=== PATIENT | male | born 1960 | race Caucasian/White ===

== ENCOUNTER 2021-08-03 17:13 | Observation (INO) | payer OTHER, SELFPAY ==
[2021-08-03] VITALS (20 sets, daily range): BP systolic 87–112; BP diastolic 54–66; PULSE 71–83; RESP 13–20; TEMP 36.7–36.9; O2SAT 95–98; BMI 33.2; BMI 32.6
--- NOTE | 2021-08-03 17:19 | DI.RAD.S_ITS ---
PROCEDURE: XR CHEST 1V INDICATIONS: chest pain TECHNIQUE: One view of the chest was acquired. COMPARISON: None. FINDINGS: Surgical changes and devices: None. Lungs and pleura: There is an overall appearance of increased interstitial markings. Mediastinum: Mediastinal contours appear normal. Heart size is mildly enlarged Bones and chest wall: No suspicious bony lesions. Overlying soft tissues appear unremarkable. IMPRESSION: Mild appearance of increased interstitial markings which can be seen with pneumonia. Superimposed edema cannot be excluded. Dictated by: Farhana Huynh M.D. on 08/03/2021 at 18:28 Approved by: Farhana Huynh M.D. on 08/03/2021 at 18:29
[2021-08-03] MEDS: SODIUM CHLORIDE 0.9% 1,000 ML 1000 ML IV ×2 (17:40→19:54)
[2021-08-03 17:56] LABS: INR 1.1 (0.9-1.3); Prothrombin Time 12.2 SECONDS (10.1-12.7)
[2021-08-03 17:59] LABS: Alanine Aminotransferase 23 IU/L (<50); Albumin 4.3 g/dL (3.5-5.0); Albumin Globulin Ratio 1.5 (1.0-2.8); Alkaline Phosphatase 84 U/L (38-126); Aspartate Aminotransferase 37 IU/L (17-59); BUN Creatinine Ratio 21.1 (6-22); Bilirubin Total 1.3 mg/dL (0.2-1.3); Blood Urea Nitrogen 48 mg/dL (9-20); Calcium 9.2 mg/dL (8.4-10.2); Carbon Dioxide 26 mmol/L (22-32); Chloride 105 mmol/L (98-107); Creatine Kinase 195 U/L (55-170); Estimated Glomerular Filt Rate 29.2 mL/min (>60); Globulin 2.8 g/dL (1.7-4.1); Glucose 145 mg/dL (80-110); HEMOLYSIS < 15 (0-50); Lipase 140 U/L (23-300); Magnesium 1.8 mg/dL (1.6-2.3); PTT Partial Thromboplastin Tim 32 SECONDS (26.4-36.2); Potassium 4.4 mmol/L (3.4-5.1); Sodium 139 mmol/L (137-145); Total Protein 7.1 g/dL (6.3-8.2)
[2021-08-03 18:02] LABS: COVID19 -Nasal RAPID POSITIVE (Negative)
[2021-08-03 18:11] LABS: Troponin I 0.031 ng/mL (0.01-0.034)
--- NOTE | 2021-08-03 18:13 | PC.NURSE ---
Patient reports significant body aches, some SOB with exertion, nausea and diarrhea that began 07/23/21 but intensified in the last couple of days. He reports recently testing positive for COVID. also reports he was doubling up on his labetalol and taking half of his prescribed metformin. He reports this was due to a misunderstanding of changes in his prescriptions.
[2021-08-03 18:14] LABS: CKMB % Relative Index 0.6 % (1.5-5.0)
[2021-08-03 18:19] LABS: Bacteria Urine None Seen; Culture Indicated Urine Cult Not Indicated; RBC Urine 1-5/HPF (0-5/HPF); Squamous Epithelial Cell Urine 0-1 /HPF (0-5/HPF); WBC Urine 1-5/HPF (0-5/HPF)
--- NOTE | 2021-08-03 18:29 | ED_ITS ---
HPI - Weakness General Chief complaint: Weakness Stated complaint: low blood pressure and low pulse Time Seen by Provider: 08/03/21 17:28 Source: patient and family Mode of arrival: Ambulatory History of Present Illness HPI Narrative: 61M nonsmoker with extensive medical history including cardiac, hypertension and chronic kidney disease presents with his from the walk-in clinic for evaluation of feeling a bit weak and ?crummy?. They are visiting locally to attend a from [facility]. He had been diagnosed with COVID with primarily mild respiratory symptoms on July 23 and had been doing largely a bit better until the past few days. He had accidentally been taking a double dose of his labetalol for a few weeks and had been doing so until or Thursday. He took at least 1 day with no labetalol and resumed his p.m. dose last night. He was feeling a bit weak and under the weather over the course of the day with very nonspecific symptoms but decided to go to the walk-in clinic for evaluation. He has had no fever or chills. He denies runny nose or sore throat. He has had some minimal cough. He denies any chest pain, dizzine Related Data Allergies Allergy/AdvReac Type Severity Reaction Status Date / Time hydromorphone [From Dilaudid] AdvReac Verified 08/03/21 17:34 Review of Systems Review of Systems Narrative: GENERAL: See HP HEENT: Denies sinus pain, ear pain, sore throat, difficulty swallowing, dizziness. RESPIRATORY: Denies dyspnea, cough, wheezing, hemoptysis, sputum. CARDIOVASCULAR: Denies chest pain, palpitations, orthopnea, edema, GASTROINTESTINAL: Denies nausea, vomiting, abdominal pain, diarrhea, constipation, melena. : Denies dysuria, frequency, incontinence, hematuria, urinary retention. MUSCULOSKELETAL: denies weakness, joint pain, or bony pain SKIN: Denies rash, skin lesions, or other NEUROLOGIC: See HPI PSYCHIATRIC: No concerning psychosocial issues. 12 point review of systems is negative except for those stated above Patient History Social History Smoking Status: Never smoker Smoking Status: Never smoker Substance Use Type: does not use Exam Narrative Exam Narrative: GENERAL: [61 year old patient appears stated age. Well-developed patient, in mild distress. HEAD: Atraumatic. Normocephalic. EYES: Pupils equal round and reactive. Extraocular motions intact. No scleral icterus. No injection or drainage. ENT: Nose without bleeding, purulent drainage. Throat without erythema, tonsillar hypertrophy or exudate. Airway patent. NECK: Trachea midline. Non tender CARDIOVASCULAR: Regular rate and rhythm without murmurs, gallops, or rubs. RESPIRATORY: Clear to auscultation. Breath sounds equal bilaterally. No wheezes, rales, or rhonchi. GASTROINTESTINAL: Abdomen soft, non-tender, nondistended. EXTREMITIES: No edema or joint tenderness. BACK: Nontender without deformity or crepitance. No flank tenderness. NEURO: AOx3. SKIN: No rash or erythema of visible areas Initial Vital Signs Initial Vital Signs: Vital Signs Blood Pressure 109/66 08/03/21 17:19 Course Orders Ordered: ED Orders 08/03/21 17:19 XR chest 1V Stat EKG-12 Lead Stat 08/03/21 17:20 COVID19 -Nasal swab/Pre-Proc Stat 08/03/21 17:30 Complete Blood Count AUTO DIFF Stat Comprehensive Metabolic Panel Stat Lipase Stat Magnesium Stat Partial Thromboplastin Time Stat Prothrombin Time INR Stat Troponin & CK Cardiac Panel Stat 08/03/21 17:55 Creatinine Urine Random Stat Sodium Urine Random Stat Urine Microscopic Stat 08/03/21 20:39 BMP [Basic Metabolic Panel] Stat Acetaminophen (Acetaminophen 325 Mg Tablet) 650 mg PO Q6HR PRN PRN Reason: Fever/Mild Pain (1-3) Dextrose (Dextrose 50 % In Water 25 Gm/50 Ml Syringe) 25 gm IV PRN PRN PRN Reason: Hypoglycemia Enoxaparin Sodium (Enoxaparin 40 Mg/0.4 Ml Syringe) 40 mg SUBCUT DAILY EDMAR Sodium Chloride (Normal Saline 0.9%) 1,000 mls @ 125 mls/hr IV CONT EDMAR Stop: 09/03/21 06:59 Insulin Glargine (Insulin Glargine 100 Unit/Ml 3ml Pen) 5 unit SUBCUT 2100 EDMAR Insulin Human Lispro (Insulin Lispro 100 Unit/Ml 3ml Vial) 0 unit SUBCUT ACHS EDMAR; Protocol Naloxone HCl (Naloxone 0.4 Mg/Ml Vial) 0.2 mg IV Q2MIN PRN PRN Reason: Opiate Reversal Ondansetron HCl (Ondansetron 4 Mg/2 Ml Inj) 4 mg IV Q8HR PRN PRN Reason: Nausea And Vomiting Discontinued Medications Sodium Chloride (Normal Saline 0.9%) 1,000 mls @ 1,000 mls/hr IV BOLUS ONE Stop: 08/03/21 18:30 Last Infusion: 08/03/21 19:50 Dose: 0 mls/hr Documented by: Admin: 08/03/21 17:40 Dose: 1,000 mls/hr Documented by: NYLAW Sodium Chloride (Normal Saline 0.9%) 1,000 mls @ 1,000 mls/hr IV BOLUS ONE Stop: 08/03/21 20:42 Last Infusion: 08/03/21 21:44 Dose: 0 mls/hr Documented by: Admin: 08/03/21 19:54 Dose: 1,000 mls/hr Documented by: AYAH Vital Signs Vital signs: Vital Signs - 8 hr 08/03/21 17:19 08/03/21 17:20 08/03/21 17:30 Temperature Pulse Rate 80 83 Respiratory Rate Blood Pressure 109/66 Pulse Oximetry 98 97 08/03/21 17:34 08/03/21 18:00 08/03/21 18:07 Temperature 98.5 F Pulse Rate 78 81 81 Respiratory Rate 18 17 19 Blood Pressure 109/66 90/56 L Pulse Oximetry 96 95 97 08/03/21 18:08 08/03/21 18:30 08/03/21 18:35 Temperature Pulse Rate 81 78 78 Respiratory Rate 20 16 16 Blood Pressure 90/54 L 92/54 L Pulse Oximetry 96 96 97 08/03/21 19:00 08/03/21 19:30 08/03/21 20:00 Temperature Pulse Rate 76 76 74 Respiratory Rate 15 15 14 Blood Pressure 94/56 L 99/58 L 96/60 Pulse Oximetry 97 97 97 08/03/21 20:30 08/03/21 21:00 08/03/21 21:30 Temperature Pulse Rate 73 71 72 Respiratory Rate 15 13 15 Blood Pressure 95/58 L 96/56 L 101/58 L Pulse Oximetry 96 96 96 08/03/21 22:00 08/03/21 22:05 08/03/21 22:06 Temperature Pulse Rate 71 79 78 Respiratory Rate 17 17 20 Blood Pressure 104/62 87/58 L 90/56 L Pulse Oximetry 96 96 97 08/03/21 22:30 Temperature Pulse Rate 72 Respiratory Rate 15 Blood Pressure 97/58 L Pulse Oximetry 97 MDM - Weakness Lab Data Result diagrams: 08/03/21 17:30 08/03/21 20:39 Labs: Lab Results 08/03/21 08/03/21 08/03/21 Range/Units 17:20 17:30 17:30 WBC 3.0 L (4.5-11.0) X10^3/uL RBC 4.21 L (4.5-5.9) X10^6/uL Hgb 13.2 L (13.5-17.5) g/dL Hct 39.2 L (41-53) % MCV 93.1 (80-100) fL MCH 31.4 (26-34) PG MCHC 33.7 (30-36) % RDW 13.0 (11.6-14.8) % Plt Count 125 L (150-400) X10^3/uL Neut % (Auto) 50.0 (50-75) % Lymph % (Auto) 35.4 (25-40) % [place] % (Auto) 12.7 (3-14) % Eos % (Auto) 1.6 L (2-4) % Baso % (Auto) 0.3 (0-2) % Neut # (Auto) 1500 (0860-2674) /uL Lymph # (Auto) 1100 (3896-4733) /uL [place] # (Auto) 400 (0-900) /uL Eos # (Auto) 0 (0-450) /uL Baso # (Auto) 0 (0-100) /uL PT (10.1-12.7) SECONDS INR (0.9-1.3) APTT (26.4-36.2) SECONDS Sodium 139 (137-145) mmol/L Potassium 4.4 (3.4-5.1) mmol/L Chloride 105 (98-107) mmol/L Carbon Dioxide 26 (22-32) mmol/L BUN 48 H (9-20) mg/dL Creatinine 2.28 H (0.66-1.25) mg/dL Estimated GFR 29.2 L (>60) mL/min BUN/Creatinine Ratio 21.1 (6-22) Glucose 145 H (80-110) mg/dL Calcium 9.2 (8.4-10.2) mg/dL Magnesium 1.8 (1.6-2.3) mg/dL Total Bilirubin 1.3 (0.2-1.3) mg/dL AST 37 (17-59) IU/L ALT 23 (<50) IU/L Alkaline Phosphatase 84 (38-126) U/L Total Creatine Kinase 195 H (55-170) U/L CK-MB (CK-2) 1.20 (<2.37) ng/mL CK-MB (CK-2) Rel Index 0.6 L (1.5-5.0) % Troponin I 0.031 (0.01-0.034) ng/mL Total Protein 7.1 (6.3-8.2) g/dL Albumin 4.3 (3.5-5.0) g/dL Globulin 2.8 (1.7-4.1) g/dL Albumin/Globulin Ratio 1.5 (1.0-2.8) Lipase 140 (23-300) U/L Urine RBC (0-5/HPF) Urine WBC (0-5/HPF) Ur Squamous Epith Cells (0-5/HPF) Urine Bacteria (None) Ur Culture Indicated? Ur Random Sodium (30-90) mmol/L Urine Creatinine mg/dL SARS-CoV-2 (PCR) Positive H (Negative) 08/03/21 08/03/21 08/03/21 Range/Units 17:30 17:55 17:55 WBC (4.5-11.0) X10^3/uL RBC (4.5-5.9) X10^6/uL Hgb (13.5-17.5) g/dL Hct (41-53) % MCV (80-100) fL MCH (26-34) PG MCHC (30-36) % RDW (11.6-14.8) % Plt Count (150-400) X10^3/uL Neut % (Auto) (50-75) % Lymph % (Auto) (25-40) % [place] % (Auto) (3-14) % Eos % (Auto) (2-4) % Baso % (Auto) (0-2) % Neut # (Auto) (0464-7484) /uL Lymph # (Auto) (5234-9454) /uL [place] # (Auto) (0-900) /uL Eos # (Auto) (0-450) /uL Baso # (Auto) (0-100) /uL PT 12.2 (10.1-12.7) SECONDS INR 1.1 (0.9-1.3) APTT 32 (26.4-36.2) SECONDS Sodium (137-145) mmol/L Potassium (3.4-5.1) mmol/L Chloride (98-107) mmol/L Carbon Dioxide (22-32) mmol/L BUN (9-20) mg/dL Creatinine (0.66-1.25) mg/dL Estimated GFR (>60) mL/min BUN/Creatinine Ratio (6-22) Glucose (80-110) mg/dL Calcium (8.4-10.2) mg/dL Magnesium (1.6-2.3) mg/dL Total Bilirubin (0.2-1.3) mg/dL AST (17-59) IU/L ALT (<50) IU/L Alkaline Phosphatase (38-126) U/L Total Creatine Kinase (55-170) U/L CK-MB (CK-2) (<2.37) ng/mL CK-MB (CK-2) Rel Index (1.5-5.0) % Troponin I (0.01-0.034) ng/mL Total Protein (6.3-8.2) g/dL Albumin (3.5-5.0) g/dL Globulin (1.7-4.1) g/dL Albumin/Globulin Ratio (1.0-2.8) Lipase (23-300) U/L Urine RBC 1-5/hpf (0-5/HPF) Urine WBC 1-5/hpf (0-5/HPF) Ur Squamous Epith Cells 0-1 /hpf (0-5/HPF) Urine Bacteria None seen (None) Ur Culture Indicated? Cult not indicated Ur Random Sodium 28 L (30-90) mmol/L Urine Creatinine 224.7 mg/dL SARS-CoV-2 (PCR) (Negative) 08/03/21 Range/Units 20:39 WBC (4.5-11.0) X10^3/uL RBC (4.5-5.9) X10^6/uL Hgb (13.5-17.5) g/dL Hct (41-53) % MCV (80-100) fL MCH (26-34) PG MCHC (30-36) % RDW (11.6-14.8) % Plt Count (150-400) X10^3/uL Neut % (Auto) (50-75) % Lymph % (Auto) (25-40) % [place] % (Auto) (3-14) % Eos % (Auto) (2-4) % Baso % (Auto) (0-2) % Neut # (Auto) (7331-6367) /uL Lymph # (Auto) (6203-2051) /uL [place] # (Auto) (0-900) /uL Eos # (Auto) (0-450) /uL Baso # (Auto) (0-100) /uL PT (10.1-12.7) SECONDS INR (0.9-1.3) APTT (26.4-36.2) SECONDS Sodium 139 (137-145) mmol/L Potassium 4.4 (3.4-5.1) mmol/L Chloride 110 H (98-107) mmol/L Carbon Dioxide 26 (22-32) mmol/L BUN 46 H (9-20) mg/dL Creatinine 1.95 H (0.66-1.25) mg/dL Estimated GFR 34.9 L (>60) mL/min BUN/Creatinine Ratio 23.6 H (6-22) Glucose 105 (80-110) mg/dL Calcium 8.3 L (8.4-10.2) mg/dL Magnesium (1.6-2.3) mg/dL Total Bilirubin (0.2-1.3) mg/dL AST (17-59) IU/L ALT (<50) IU/L Alkaline Phosphatase (38-126) U/L Total Creatine Kinase (55-170) U/L CK-MB (CK-2) (<2.37) ng/mL CK-MB (CK-2) Rel Index (1.5-5.0) % Troponin I (0.01-0.034) ng/mL Total Protein (6.3-8.2) g/dL Albumin (3.5-5.0) g/dL Globulin (1.7-4.1) g/dL Albumin/Globulin Ratio (1.0-2.8) Lipase (23-300) U/L Urine RBC (0-5/HPF) Urine WBC (0-5/HPF) Ur Squamous Epith Cells (0-5/HPF) Urine Bacteria (None) Ur Culture Indicated? Ur Random Sodium (30-90) mmol/L Urine Creatinine mg/dL SARS-CoV-2 (PCR) (Negative) Urine Dip Bedside Urine Glucose Negative Bedside Urine Bilirubin - Negative Bedside Urine Ketone - Negative Urine Specific [place] 1.025 Bedside Urine Occult Blood - Negative Bedside Urine pH 5.5 Bedside Urine Protein +/- 15 Bedside Urine Urobilinogen - Negative Bedside Urine Nitrite - Negative Bedside Urine Leukocytes - Negative Esterase MDM Narrative Medical decision making narrative: Patient with increasing generalized weakness and fatigue over the course of the week is found to have acute kidney injury with bump in creatinine up to 2.2 from a baseline of 1.4. He has been traveling, had been COVID positive with decreased appetite and decreased oral intake. In addition he had been accident ally taking extra labetalol for up to 3 weeks and this was noticed just 2 days ago. His increased creatinine is most likely prerenal, FeNa is 0.2% and likely multifactorial with elements of dehydration along with significantly decreased blood pressure for at least a few days due to accidental overdose. He is given 2 L of fluid with labs recheck then there was only a slight improvement in creatinine in and slight improvement in blood pressure. He does become orthostatic upon standing with a blood pressure the drops to about 80, however he remains largely asymptomatic. He reports no dizziness, lightheadedness or any increase in symptoms upon standing. Patient requires hospitalization for further evaluation, monitoring and stabilization of his condition. Discharge Plan Departure Patient Disposition: Admitted As Inpatient Clinical Impression: Acute kidney injury, Acute dehydration, COVID Admit Date/Time: 08/03/21 22:32 Admit Provider: Sandy Selby
[2021-08-03 18:30] LABS: Add Manual Diff / Slide Review NO; Basophils Absolute Auto 0 /uL (0-100); Basophils Percent Auto 0.3 % (0-2); Eosinophils Absolute Auto 0 /uL (0-450); Eosinophils Percent Auto 1.6 % (2-4); Hematocrit 39.2 % (41-53); Hemoglobin 13.2 g/dL (13.5-17.5); Lymphocytes Absolute Auto 1100 /uL (1100-4500); Lymphocytes Percent Auto 35.4 % (25-40); Mean Corpuscular HGB Conc 33.7 % (30-36); Mean Corpuscular Hemoglobin 31.4 PG (26-34); Mean Corpuscular Volume 93.1 fL (80-100); Monocytes Absolute Auto 400 /uL (0-900); Monocytes Percent Auto 12.7 % (3-14); Neutrophils Absolute Auto 1500 /uL (1500-7000); Platelet Count 125 X10^3/uL (150-400); Red Blood Cell Count 4.21 X10^6/uL (4.5-5.9)
[2021-08-03 19:58] LABS: Creatinine Urine Random 224.7 mg/dL; Sodium Urine Random 28 mmol/L (30-90)
[2021-08-03 21:27] LABS: BUN Creatinine Ratio 23.6 (6-22); Blood Urea Nitrogen 46 mg/dL (9-20); Calcium 8.3 mg/dL (8.4-10.2); Carbon Dioxide 26 mmol/L (22-32); Chloride 110 mmol/L (98-107); Estimated Glomerular Filt Rate 34.9 mL/min (>60); Glucose 105 mg/dL (80-110); HEMOLYSIS 16 (0-50); Potassium 4.4 mmol/L (3.4-5.1); Sodium 139 mmol/L (137-145)
--- NOTE | 2021-08-03 22:20 | PC.NURSE ---
This SOLID DIE CUTTER went in to ambulate patient per doctor. Patient stood up and reported that he felt fine. After patient had been standing for a minute, this SOLID DIE CUTTER cycled the blood pressure. Patient's blood pressure was 87/58. Patient reported that he did not feel dizzy or lightheaded but rather felt close to normal. The blood pressure cuff was adjusted then the blood pressure was cycled again. Patient's blood pressure was then 90/56. Patient then laid down back on bed still stating that he felt fine. Food and fluids were offered to patient and talent acquisition coordinator. This was reported to RN and
--- NOTE | 2021-08-03 22:56 | PC.NURSE ---
Pt misha was handed to .
[2021-08-03 23:31] LABS: Hemoglobin A1C% w Est Avg Glu 6.4 % (4.0-6.0)
--- NOTE | 2021-08-03 23:53 | P.HP_ITS ---
History of Present Illness History of Present Illness Date Patient Seen: 08/03/21 Time Patient Seen: 23:53 Chief complaint: ANU, doubled up on BP med, COVID-19 Narrative: Carly Guan is a 61-year-old male resident of [facility] with hypertension, hyperlipidemia, diabetes type 2 and a positive COVID test as early as July 23, flew over to this area for a family . Per the emergency department provider it appears that he took a double dose of prescribed labetalol and presented to the emergency department with low blood pressure. He had been feeling poorly and states that it is hard to breathe deeply and accompanied with a cough. He denies fever he has a ?salty taste? in his mouth an adult sense of smell but not entirely absent. States he has been nauseous but has not had any vomiting. No changes in urination or bowel movements. He states that he has no strength, and that he takes medications for neuropathy in his legs. He believes his last A1c was 5.7 in June. He stated he took a self test on July 23 and was positive. He then took another test right before his flight on August 01 and it was also positive. He states that he flew [facility] and that they were aware of his positive COVID status. I am guessing they may have allowed him to fly on a compassionate family emergency status. He is unvaccinated in is not interested in having a vaccine. Chest x-ray ordered in the emergency department indicated the following ?Mild appearance of increased interstitial markings which can be seen with pneumonia.? Patient was bolused with 2 L of normal saline. Superimposed edema cannot be excluded.Patient is afebrile, blood pressure 112/60 though he initially presented with a blood pressure of 90/56, heart rate 71, respiratory rate 16, oxygen saturation of 97% on room air he weighs 100.4 kg with a BMI of 32.6. He is mildly anemic with a hemoglobin hematocrit of 18.2 and 39.2, platelet count is 125, chloride 110, he initially presented with a creatinine of 2.29 and after the normal saline bolus went up to 1.95 with EGFR 34.9, his A1c is 6.4, calcium 8.3, total CK was 195, CK-MB was 0.6 UA is negative for UTI, COVID-19 PCR is positive. Patient History Medical History (Updated 08/03/21 @ 23:56 by MARLEY Brito) Bile duct stone Diabetes type 2 with atherosclerosis of arteries of extremities Essential hypertension HLD (hyperlipidemia) Surgical History (Updated 08/03/21 @ 23:56 by MARLEY Brito) History of ERCP Family & Social History Family History (Updated 08/03/21 @ 23:57 by MARLEY Brito) Father CVA (cerebral vascular accident) Diabetes mellitus Mother Cancer Safety & Behavioral: Feels Safe in Current Yes Environment Tobacco & Substance use: Smoking Status Never smoker Substance Use Type does not use Meds Home Medications and Allergies Allergies Allergy/AdvReac Type Severity Reaction Status Date / Time hydromorphone [From Dilaudid] AdvReac Verified 08/03/21 17:34 Review of Systems Review of Systems ROS: Yes All systems reviewed with the patient and are negative except as otherwise documented Exam Vital Signs (past 8 hours): - 08/03/21 17:19 08/03/21 17:20 08/03/21 17:30 Temperature Pulse Rate 80 83 Respiratory Rate Blood Pressure 109/66 Pulse Oximetry 98 97 08/03/21 17:34 08/03/21 18:00 08/03/21 18:07 Temperature 98.5 F Pulse Rate 78 81 81 Respiratory Rate 18 17 19 Blood Pressure 109/66 90/56 L Pulse Oximetry 96 95 97 08/03/21 18:08 08/03/21 18:30 08/03/21 18:35 Temperature Pulse Rate 81 78 78 Respiratory Rate 20 16 16 Blood Pressure 90/54 L 92/54 L Pulse Oximetry 96 96 97 08/03/21 19:00 08/03/21 19:30 08/03/21 20:00 Temperature Pulse Rate 76 76 74 Respiratory Rate 15 15 14 Blood Pressure 94/56 L 99/58 L 96/60 Pulse Oximetry 97 97 97 08/03/21 20:30 08/03/21 21:00 08/03/21 21:30 Temperature Pulse Rate 73 71 72 Respiratory Rate 15 13 15 Blood Pressure 95/58 L 96/56 L 101/58 L Pulse Oximetry 96 96 96 08/03/21 22:00 08/03/21 22:05 08/03/21 22:06 Temperature Pulse Rate 71 79 78 Respiratory Rate 17 17 20 Blood Pressure 104/62 87/58 L 90/56 L Pulse Oximetry 96 96 97 08/03/21 22:30 08/03/21 23:20 Temperature 98.1 F Pulse Rate 72 71 Respiratory Rate 15 16 Blood Pressure 97/58 L 112/60 Pulse Oximetry 97 97 Oxygen Delivery Method Room Air Oxygen Flow Rate 0 Narrative Exam Narrative: Gen: Alert, oriented, well-developed 61 y.o. male, lethargic HEENT: normocephalic, atraumatic, conjunctiva clear, sclera non-icteric, oral mucosa pink and moist Neck: supple, full ROM, no JVD, trachea is midline Resp: Lungs CTA, non-labored breathing CV: RRR, no murmur or rubs Abd: soft, non-tender, normoactive BTs Skin: no lesions or rashes, dry and intact Neuro: Alert and oriented X 4 w/no focal deficits. Speech clear and coherent. Extremities: moves all 4 extremities, is ambulatory, negative Mitchell?s sign Psyche: depressed mood and affect. Objective Labs Result Diagrams: 08/03/21 17:30 08/03/21 20:39 Labs: Laboratory Results - last 24 hr 08/03/21 08/03/21 08/03/21 17:20 17:30 17:30 WBC 3.0 L RBC 4.21 L Hgb 13.2 L Hct 39.2 L MCV 93.1 MCH 31.4 MCHC 33.7 RDW 13.0 Plt Count 125 L Neut % (Auto) 50.0 Lymph % (Auto) 35.4 [place] % (Auto) 12.7 Eos % (Auto) 1.6 L Baso % (Auto) 0.3 Neut # (Auto) 1500 Lymph # (Auto) 1100 [place] # (Auto) 400 Eos # (Auto) 0 Baso # (Auto) 0 PT INR APTT Sodium 139 Potassium 4.4 Chloride 105 Carbon Dioxide 26 BUN 48 H Creatinine 2.28 H Estimated GFR 29.2 L BUN/Creatinine Ratio 21.1 Glucose 145 H Hemoglobin A1c Calcium 9.2 Magnesium 1.8 Total Bilirubin 1.3 AST 37 ALT 23 Alkaline Phosphatase 84 Total Creatine Kinase 195 H CK-MB (CK-2) 1.20 CK-MB (CK-2) Rel Index 0.6 L Troponin I 0.031 Total Protein 7.1 Albumin 4.3 Globulin 2.8 Albumin/Globulin Ratio 1.5 Lipase 140 Urine RBC Urine WBC Ur Squamous Epith Cells Urine Bacteria Ur Culture Indicated? Ur Random Sodium Urine Creatinine SARS-CoV-2 (PCR) Positive H 08/03/21 08/03/21 08/03/21 17:30 17:30 17:55 WBC RBC Hgb Hct MCV MCH MCHC RDW Plt Count Neut % (Auto) Lymph % (Auto) [place] % (Auto) Eos % (Auto) Baso % (Auto) Neut # (Auto) Lymph # (Auto) [place] # (Auto) Eos # (Auto) Baso # (Auto) PT 12.2 INR 1.1 APTT 32 Sodium Potassium Chloride Carbon Dioxide BUN Creatinine Estimated GFR BUN/Creatinine Ratio Glucose Hemoglobin A1c 6.4 H Calcium Magnesium Total Bilirubin AST ALT Alkaline Phosphatase Total Creatine Kinase CK-MB (CK-2) CK-MB (CK-2) Rel Index Troponin I Total Protein Albumin Globulin Albumin/Globulin Ratio Lipase Urine RBC 1-5/hpf Urine WBC 1-5/hpf Ur Squamous Epith Cells 0-1 /hpf Urine Bacteria None seen Ur Culture Indicated? Cult not indicated Ur Random Sodium Urine Creatinine SARS-CoV-2 (PCR) 08/03/21 08/03/21 17:55 20:39 WBC RBC Hgb Hct MCV MCH MCHC RDW Plt Count Neut % (Auto) Lymph % (Auto) [place] % (Auto) Eos % (Auto) Baso % (Auto) Neut # (Auto) Lymph # (Auto) [place] # (Auto) Eos # (Auto) Baso # (Auto) PT INR APTT Sodium 139 Potassium 4.4 Chloride 110 H Carbon Dioxide 26 BUN 46 H Creatinine 1.95 H Estimated GFR 34.9 L BUN/Creatinine Ratio 23.6 H Glucose 105 Hemoglobin A1c Calcium 8.3 L Magnesium Total Bilirubin AST ALT Alkaline Phosphatase Total Creatine Kinase CK-MB (CK-2) CK-MB (CK-2) Rel Index Troponin I Total Protein Albumin Globulin Albumin/Globulin Ratio Lipase Urine RBC Urine WBC Ur Squamous Epith Cells Urine Bacteria Ur Culture Indicated? Ur Random Sodium 28 L Urine Creatinine 224.7 SARS-CoV-2 (PCR) Assessment & Plan Assessment & Plan narrative: Horace Guan is admitted for an acute kidney injury likely secondary to a accidental medication overdose, hypotension also likely secondary to an accidental medication overdose, dehydration and COVID-19 pneumonia. 1. Acute kidney injury, present on admission * Creatinine is responding nicely to fluid hydration * Will continue normal saline at 125 mL/hour x2 L and then stop * Recheck renal functions in the morning 2. Hypotension, acute, present on admission * Likely secondary to a accidental medication overdose * Patient appears to be improving with an almost normotensive blood pressure currently with fluids * Minoxidil, labetalol, losartan, hydrochlorothiazide, and spironolactone will be held and reintroduced once the patient begins to become hypertensive if he does develop this again 3. COVID-19 pneumonia positive since at least July 23 and continues to be positive * Monitor patient's oxygen saturation * Provide supplemental oxygen if necessary, he does not appear to require it now * Will not start the normal COVID-19 cocktail as he is had COVID pneumonia for at least a week and a half * Airborne precautions 4. Diabetes type 2 with an A1c of 6.4 * Metformin is held and will put on Lantus 5 units daily and low-dose correctional insulin a.c. HS * Carb controlled diet 5. Hyperlipidemia, chronic * Continue home dose of atorvastatin 40 mg p.o. at bedtime and Zetia 10 mg p.o. at bedtime 6. Diabetic polyneuropathy, chronic * Continue home doses of duloxetine 60 mg p.o. daily and Lyrica 50 mg p.o. b.i.d. COVID-19 COVID-19 status: Positive (Positive since 07/23/2020) Result date/Date tested (Pos, Neg/Pending): 08/04/21 Time Spent With Patient Critical Care time: I spent a total of [] minutes of critical care time on this patient's care today; this time is exclusive of procedural time. Scores Wells' Criteria for PE Clinical signs and symptoms of DVT: No PE is #1 Dx or equally likely: No Heart rate > 100: No Immobilization at least 3 days or surg in previous 4 weeks: No History of PE or DVT: No Hemoptysis: No Malignancy w/Treatment within 6 months or palliative: No Wells' PE Score total: 0 Quality MIPS - Admit I confirm the patient?s Advance Care Plan is present, Code status is documented, Surrogate decision maker is in patient?s record [If Yes, STOP here]: Yes MIPS - DC The patient has current or prior documentation of left ventricular ejection fraction (LVEF) less than 40%, or moderate or severely depressed left ventricular systolic function.: No
[2021-08-04] MEDS: SODIUM CHLORIDE 0.9% 1,000 ML 125 ML IV ×2 (00:19→06:52)
[2021-08-04 02:42] VITALS: BP 117/66; PULSE 72; RESP 16; TEMP 37.7; O2SAT 92
[2021-08-04 05:01] LABS: Alanine Aminotransferase 19 IU/L (<50); Albumin 3.4 g/dL (3.5-5.0); Albumin Globulin Ratio 1.4 (1.0-2.8); Alkaline Phosphatase 65 U/L (38-126); Aspartate Aminotransferase 30 IU/L (17-59); Bilirubin Total 1.1 mg/dL (0.2-1.3); Globulin 2.4 g/dL (1.7-4.1); HEMOLYSIS < 15 (0-50); Magnesium 1.7 mg/dL (1.6-2.3); Total Protein 5.8 g/dL (6.3-8.2)
[2021-08-04] MEDS: ENOXAPARIN 40 MG/0.4 ML SYRINGE SUBCUT (08:29)
[2021-08-04 08:30] VITALS: BP 120/73; PULSE 78; PULSE 80; RESP 16; RESP 17; TEMP 37.3; O2SAT 91; O2SAT 92
[2021-08-04 11:56] VITALS: BP 120/77; PULSE 82; RESP 18; TEMP 38.3; O2SAT 95
--- NOTE | 2021-08-04 12:08 | CM.DANOTE ---
DCP: Case received, EMR reviewed and called patient in his room, since he is COVID positive. Introduced self and role over the phone. Was able to obtain information regarding patient's baseline activity level prior to hospitalization. DCP assessment completed with information currently available. Patient is a 61 year old male who admitted yesterday evening to the care of the hospitalist team. PCP: Dr. Corona (in [place]). Payer: confirmed: [employer]. Patient came to the hospital via private vehicle secondary to having a low blood pressure and pulse rate. Patient was diagnosed with hypotension, secondary to taking too much of his blood pressure medication. Patient also holds diagnosis of COVID, he was diagnosed on the 4th of this month, and he has history of diabetes type 2. Patient is here from [place], he flew out here for a . Called patient in his room since he is positive COVID. Confirmed with patient that he resides in [place] with his spouse, Ankita. He indicated that he did fly out her with his family, and his was also ill. He is independent at his baseline. P: DCP to continue to follow. Discussed during team rounds, and patient could possibly go home today. Malgorzata De Leon RN/Hand Bindery Assembly Worker Discharge Planning/Care Management CM Discharge Assessment Start: 08/04/21 12:07 Freq: Status: Active Protocol: Document 08/04/21 12:07 (Rec: 08/04/21 12:08 [id number]) Discharge Planning Assessment Assigned Server Support Technician Malgorzata De Leon RN/Hand Bindery Assembly Worker Advance Directives? No Advance Directives on File No History Provided By Patient,Medical Record Prior Living Arrangements House Household Members spouse Type of transporation used prior to Drives own vehicle admit Independent with ADL's Yes Is patient alert and oriented? Yes Caregiver for Another No Barriers to Discharge No Discharge Plan Home Transportation Arrangement Family Referrals Initiated None needed Whiteboard Updated in Patient Room with Yes name and ext. # of Server Support Technician Review Status In Process Next Review Type Continued Stay Review
[2021-08-04 13:19] VITALS: TEMP 36.8
[2021-08-04 14:48] LABS: BUN Creatinine Ratio 20.7 (6-22); Blood Urea Nitrogen 30 mg/dL (9-20); Calcium 8.6 mg/dL (8.4-10.2); Carbon Dioxide 25 mmol/L (22-32); Chloride 112 mmol/L (98-107); Estimated Glomerular Filt Rate 49.2 mL/min (>60); Glucose 115 mg/dL (80-110); HEMOLYSIS < 15 (0-50); Potassium 4.3 mmol/L (3.4-5.1); Sodium 141 mmol/L (137-145)
--- NOTE | 2021-08-04 15:13 | DI.CT.S_ITS ---
PROCEDURE: CT ANGIO CHEST PE PROTOCOL INDICATIONS: Clinical concern for pulmonary embolism. TECHNIQUE: After the administration of intravenous contrast, 2 mm thick sections acquired from the pulmonary apices to the posterior costophrenic angles. 3-dimensional maximum intensity projection (MIP) coronal and sagittal reformats were then acquired through the thorax. For radiation dose reduction, the following was used: automated exposure control, adjustment of mA and/or kV according to patient size. COMPARISON: [facility], CR, XR CHEST 1V, 08/03/2021, 18:04. FINDINGS: Image quality: Excellent. Pulmonary arteries: Pulmonary arteries are normal in size, and demonstrate no intraluminal filling defects to suggest central pulmonary embolism. Lungs and pleura: Bilateral patchy interstitial type infiltrates are seen, which are worst peripherally. Dependent atelectasis is also seen. No pleural effusions or pneumothorax. Central and peripheral airways are patent. Mediastinum: Heart size is normal, without pericardial effusion. No mediastinal or hilar adenopathy. Thoracic aorta is normal in caliber and enhancement. Esophagus is normal in caliber, without hiatal hernia. Bones and chest wall: No suspicious bony lesions. Age-appropriate bony degenerative changes are seen. Accentuated thoracic kyphosis is seen. Ribs and thoracic spine appear intact throughout. Thyroid gland demonstrates no significant abnormality. No axillary or supraclavicular adenopathy. Abdomen: Biliary gas can be seen within the upper abdomen. A simple appearing right renal cyst is seen posteriorly, measuring 3.8 cm. The visualized portions of the upper abdominal structures are otherwise unremarkable for imaging technique. IMPRESSION: Negative for pulmonary embolism. Patchy bilateral interstitial infiltrates are seen, which are consistent with the known clinical history of COVID pneumonia. Incidental note is made of: Biliary gas Simple appearing right renal cyst Dictated by: Vidal Timmons M.D. on 08/04/2021 at 16:13 Approved by: Vidal Timmons M.D. on 08/04/2021 at 16:15
[2021-08-04 15:22] LABS: D Dimer < 200 ng/mL (<230); Lactate (Lactic Acid) 0.8 mmol/L (0.7-2.1)
[2021-08-04 15:51] LABS: Procalcitonin 0.07 ng/mL (<0.5)
[2021-08-04 16:56] VITALS: BP 133/82; PULSE 80; RESP 18; TEMP 37.3; O2SAT 97
--- NOTE | 2021-08-04 17:49 | PM.DS.1 ---
History of Present Illness History of Present Illness Date Patient Seen: 08/04/21 Chief complaint: ANU, doubled up on BP med, COVID-19 Narrative: Carly Guan is a 61-year-old male resident of [facility] with hypertension, hyperlipidemia, diabetes type 2 and a positive COVID test as early as July 23, flew over to this area for a family .? Per the emergency department provider it appears that he took a double dose of prescribed labetalol and presented to the emergency department with low blood pressure.? He had been feeling poorly and states that it is hard to breathe deeply and accompanied with a cough.? He denies fever he has a ?salty taste? in his mouth an adult sense of smell but not entirely absent.? States he has been nauseous but has not had any vomiting.? No changes in urination or bowel movements.? He states that he has no strength, and that he takes medications for neuropathy in his legs.? He believes his last A1c was 5.7 in June.? He stated he took a self test on July 23 and was positive.? He then took another test right before his flight on August 01 and it was also positive.? He states that he flew [facility] and that they were aware of his positive COVID status.? I am guessing they may have allowed him to fly on a compassionate family emergency status.? He is unvaccinated in is not interested in having a vaccine. Chest x-ray ordered in the emergency department indicated the following ?Mild appearance of increased interstitial markings which can be seen with pneumonia.? Patient was bolused with 2 L of normal saline.? Superimposed edema cannot be excluded.Patient is afebrile, blood pressure 112/60 though he initially presented with a blood pressure of 90/56, heart rate 71, respiratory rate 16, oxygen saturation of 97% on room air he weighs 100.4 kg with a BMI of 32.6.? He is mildly anemic with a hemoglobin hematocrit of 18.2 and 39.2, platelet count is 125, chloride 110, he initially presented with a creatinine of 2.29 and after the normal saline bolus went up to 1.95 with EGFR 34.9, his A1c is 6.4, calcium 8.3, total CK was 195, CK-MB was 0.6 UA is negative for UTI, COVID-19 PCR is positive. Discharge Providers Provider Date of admission: 08/03/21 22:32 Discharge Date: 08/04/21 Discharge provider: Alejandra Chun MD Summary Hospital Course Discharge Diagnosis: 1. Iatrogenic Hypotension 2. Covid-19, without hypoxia 3. Type 2 Diabetes 4. Hypertension 5. Hyperlipidemia Hospital Course: Patient admitted for hypotension from an inadvertant overdose. This was confirmed with his . Patient had low grade fevers. No shortness of breath or cough. CTA angio was negative for PE, but findings consistent with Covid pneumonia Patient deemed appropriate for discharge home. Status at Discharge Cognitive/behavioral status at discharge: oriented Functional status at discharge: independent ambulation Overall status at discharge: patient is back to baseline Exam Vital Signs (past 8 hours): - 08/04/21 11:56 08/04/21 13:19 Temperature 100.9 F H 98.3 F Pulse Rate 82 Respiratory Rate 18 Blood Pressure 120/77 Pulse Oximetry 95 Oxygen Delivery Method Room Air Oxygen Flow Rate 0 Narrative Exam Narrative: pleasant male in no acute distress Resp Other: Lungs: decreased but clear to auscultation Cardio Other: CV: RRR nl Sl S2 GI Other: Abd: soft/ non tender Extrem Other: no edema Objective Labs Result Diagrams: 08/03/21 17:30 08/04/21 14:25 Labs: Laboratory Results - last 24 hr 08/03/21 08/03/21 08/03/21 17:20 17:30 17:30 WBC 3.0 L RBC 4.21 L Hgb 13.2 L Hct 39.2 L MCV 93.1 MCH 31.4 MCHC 33.7 RDW 13.0 Plt Count 125 L Neut % (Auto) 50.0 Lymph % (Auto) 35.4 Granite % (Auto) 12.7 Eos % (Auto) 1.6 L Baso % (Auto) 0.3 Neut # (Auto) 1500 Lymph # (Auto) 1100 Granite # (Auto) 400 Eos # (Auto) 0 Baso # (Auto) 0 PT INR APTT D-Dimer Sodium 139 Potassium 4.4 Chloride 105 Carbon Dioxide 26 BUN 48 H Creatinine 2.28 H Estimated GFR 29.2 L BUN/Creatinine Ratio 21.1 Glucose 145 H Hemoglobin A1c Lactate Calcium 9.2 Magnesium 1.8 Total Bilirubin 1.3 Conjugated Bilirubin Unconjugated Bilirubin AST 37 ALT 23 Alkaline Phosphatase 84 Total Creatine Kinase 195 H CK-MB (CK-2) 1.20 CK-MB (CK-2) Rel Index 0.6 L Troponin I 0.031 Total Protein 7.1 Albumin 4.3 Globulin 2.8 Albumin/Globulin Ratio 1.5 Lipase 140 Procalcitonin Urine RBC Urine WBC Ur Squamous Epith Cells Urine Bacteria Ur Culture Indicated? Ur Random Sodium Urine Creatinine SARS-CoV-2 (PCR) Positive H 08/03/21 08/03/21 08/03/21 17:30 17:30 17:55 WBC RBC Hgb Hct MCV MCH MCHC RDW Plt Count Neut % (Auto) Lymph % (Auto) Granite % (Auto) Eos % (Auto) Baso % (Auto) Neut # (Auto) Lymph # (Auto) Granite # (Auto) Eos # (Auto) Baso # (Auto) PT 12.2 INR 1.1 APTT 32 D-Dimer Sodium Potassium Chloride Carbon Dioxide BUN Creatinine Estimated GFR BUN/Creatinine Ratio Glucose Hemoglobin A1c 6.4 H Lactate Calcium Magnesium Total Bilirubin Conjugated Bilirubin Unconjugated Bilirubin AST ALT Alkaline Phosphatase Total Creatine Kinase CK-MB (CK-2) CK-MB (CK-2) Rel Index Troponin I Total Protein Albumin Globulin Albumin/Globulin Ratio Lipase Procalcitonin Urine RBC 1-5/hpf Urine WBC 1-5/hpf Ur Squamous Epith Cells 0-1 /hpf Urine Bacteria None seen Ur Culture Indicated? Cult not indicated Ur Random Sodium Urine Creatinine SARS-CoV-2 (PCR) 08/03/21 08/03/21 08/04/21 17:55 20:39 04:35 WBC RBC Hgb Hct MCV MCH MCHC RDW Plt Count Neut % (Auto) Lymph % (Auto) Granite % (Auto) Eos % (Auto) Baso % (Auto) Neut # (Auto) Lymph # (Auto) Granite # (Auto) Eos # (Auto) Baso # (Auto) PT INR APTT D-Dimer Sodium 139 Potassium 4.4 Chloride 110 H Carbon Dioxide 26 BUN 46 H Creatinine 1.95 H Estimated GFR 34.9 L BUN/Creatinine Ratio 23.6 H Glucose 105 Hemoglobin A1c Lactate Calcium 8.3 L Magnesium 1.7 Total Bilirubin 1.1 Conjugated Bilirubin 0.0 Unconjugated Bilirubin 1.0 AST 30 ALT 19 Alkaline Phosphatase 65 Total Creatine Kinase CK-MB (CK-2) CK-MB (CK-2) Rel Index Troponin I Total Protein 5.8 L Albumin 3.4 L Globulin 2.4 Albumin/Globulin Ratio 1.4 Lipase Procalcitonin Urine RBC Urine WBC Ur Squamous Epith Cells Urine Bacteria Ur Culture Indicated? Ur Random Sodium 28 L Urine Creatinine 224.7 SARS-CoV-2 (PCR) 08/04/21 08/04/21 08/04/21 14:25 14:25 14:40 WBC RBC Hgb Hct MCV MCH MCHC RDW Plt Count Neut % (Auto) Lymph % (Auto) Granite % (Auto) Eos % (Auto) Baso % (Auto) Neut # (Auto) Lymph # (Auto) Granite # (Auto) Eos # (Auto) Baso # (Auto) PT INR APTT D-Dimer < 200 Sodium 141 Potassium 4.3 Chloride 112 H Carbon Dioxide 25 BUN 30 H Creatinine 1.45 H Estimated GFR 49.2 L BUN/Creatinine Ratio 20.7 Glucose 115 H Hemoglobin A1c Lactate Calcium 8.6 Magnesium Total Bilirubin Conjugated Bilirubin Unconjugated Bilirubin AST ALT Alkaline Phosphatase Total Creatine Kinase CK-MB (CK-2) CK-MB (CK-2) Rel Index Troponin I Total Protein Albumin Globulin Albumin/Globulin Ratio Lipase Procalcitonin 0.07 Urine RBC Urine WBC Ur Squamous Epith Cells Urine Bacteria Ur Culture Indicated? Ur Random Sodium Urine Creatinine SARS-CoV-2 (PCR) 08/04/21 14:40 WBC RBC Hgb Hct MCV MCH MCHC RDW Plt Count Neut % (Auto) Lymph % (Auto) Granite % (Auto) Eos % (Auto) Baso % (Auto) Neut # (Auto) Lymph # (Auto) Granite # (Auto) Eos # (Auto) Baso # (Auto) PT INR APTT D-Dimer Sodium Potassium Chloride Carbon Dioxide BUN Creatinine Estimated GFR BUN/Creatinine Ratio Glucose Hemoglobin A1c Lactate 0.8 Calcium Magnesium Total Bilirubin Conjugated Bilirubin Unconjugated Bilirubin AST ALT Alkaline Phosphatase Total Creatine Kinase CK-MB (CK-2) CK-MB (CK-2) Rel Index Troponin I Total Protein Albumin Globulin Albumin/Globulin Ratio Lipase Procalcitonin Urine RBC Urine WBC Ur Squamous Epith Cells Urine Bacteria Ur Culture Indicated? Ur Random Sodium Urine Creatinine SARS-CoV-2 (PCR) [facility] Medical History (Updated 08/03/21 @ 23:56 by MARLEY Brito) Bile duct stone Diabetes type 2 with atherosclerosis of arteries of extremities Essential hypertension HLD (hyperlipidemia) Surgical History (Updated 08/03/21 @ 23:56 by MARLEY Brito) History of ERCP Family History (Updated 08/03/21 @ 23:57 by MARLEY Brito) Father CVA (cerebral vascular accident) Diabetes mellitus Mother Cancer Social History (Updated 08/03/21 @ 23:58 by MARLEY Brito) marital status: household members: spouse occupational status: employed current occupational exposures/hazards: Yes 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 Covid-19, without hypoxia 3. Type 2 Diabetes 4. Hypertension 5. Hyperlipidemia Plan of Treatment: Discharge home resume medications as instructed by PCP Discharge Plan Discharge Plan Patient Disposition: Home Discharge orders & Medications Prescriptions: Continued metformin 500 mg tablet extended release 24 hr 500 mg PO BID 0RF Label Comments: TAKE 2 TABLETS BY MOUTH WITH EVENING WITH MEAL atorvastatin 40 mg tablet 40 mg PO BEDTIME 0RF Label Comments: TAKE ONE TABLET BY MOUTH ONE TIME DAILY labetalol 200 mg tablet 200 mg PO BID 0RF Label Comments: TAKE TWO TABLETS BY MOUTH TWICE DAILY minoxidil 2.5 mg tablet 2.5 mg PO BID 0RF Label Comments: TAKE ONE TABLET BY MOUTH TWICE DAILY spironolactone 25 mg tablet 25 mg PO DAILY 0RF Label Comments: TAKE ONE TABLET BY MOUTH ONE TIME DAILY tamsulosin 0.4 mg capsule 0.4 mg PO DAILY 0RF ursodiol 300 mg capsule 300 mg PO BID 0RF Label Comments: TAKE ONE CAPSULE BY MOUTH TWICE DAILY FOR 30 DAYS hydrochlorothiazide 25 mg tablet 25 mg PO DAILY 0RF Label Comments: TAKE ONE TABLET BY MOUTH EVERY MORNING losartan 100 mg tablet 100 mg PO DAILY 0RF Label Comments: TAKE ONE TABLET BY MOUTH ONE TIME DAILY duloxetine 60 mg capsule,delayed release(DR/EC) 60 mg PO BEDTIME 0RF Label Comments: TAKE ONE CAPSULE BY MOUTH ONE TIME DAILY pregabalin 50 mg capsule 50 mg PO BID 0RF Label Comments: TAKE ONE CAPSULE BY MOUTH TWICE DAILY to last 30 days Discharge Health Status Multidrug resistant organism: No MDRO Diet/Activity/Treatments Diet: Diet as Tolerated Visit Report/Discharge Packet Instructions: How to Prevent Falls, DI for Safely Taking and Storing Medications -- Adults Discharge Data Attending Provider: Sandy Selby
--- NOTE | 2021-08-04 18:59 | PC.NURSE ---
Discharged by provider. D/C education provided. Pt verbalized understanding of all written and verbal instructions. Pt verbalized he will take his medication as prescribed, advised not to take additional doses or change his medications without speaking with his provider. IV and tele removed. Home meds returned from pharmacy. Escorted out via w/c to private vehicle. Pt left in stable condition with all personal belongings.
== END 2021-08-04 18:50 | disposition home or self-care (01) ==
LOC: ED 22:29 → AC 08-04 00:06
PROVIDERS: Emergency Medicine; Internal Medicine; Admitting Provider Nurse Practitioner Family; Emergency Provider Emergency Medicine; Referring Provider Emergency Medicine; Visit Provider Nurse Practitioner Family
DX: U07.1 COVID-19 (principal); J12.82 Pneumonia due to coronavirus disease 2019; N17.9 Acute kidney failure, unspecified; E86.0 Dehydration; T44.8X1A Poisoning by centrally-acting and adrenergic-neuron-blocking agents, accidental (unintentional), initial encounter; I95.2 Hypotension due to drugs; I10 Essential (primary) hypertension; E78.5 Hyperlipidemia, unspecified; E11.42 Type 2 diabetes mellitus with diabetic polyneuropathy; Z79.4 Long term (current) use of insulin
CPT/HCPCS: 36415; 71045; 71275; 80048; 80053; 80076; 81003; 81015; 82550; 82553; 82570; 82962; 83036; 83605; 83690; 83735; 84145; 84300; 84484; 85025; 85379; 85610; 85730; 87040; 87635; 93005; 93010; 94762; 96360; 96361; 96372; 99284; 99285; C9803; G0378; J1650; J1815; Q9967